=== PATIENT | female | born 1990 | race Hispanic/Latino ===

== ENCOUNTER 2018-02-11 02:14 | Emergency (ER) | payer MEDICAID ==
[2018-02-11 02:40] LABS: APPEARANCE,URINE Clear (CLEAR); BILIRUBIN,URINE Negative (NEGATIVE); COLOR,URINE Yellow (YELLOW); GLUCOSE, URINE (UA) Negative (NEGATIVE); KETONES,URINE Trace mg/dL (NEGATIVE); LEUKOCYTE ESTERASE ,URINE Negative (NEGATIVE); NITRATE,URINE Negative (NEGATIVE); OCCULT BLOOD,URINE Negative (NEGATIVE); PROTEIN,URINE Negative (NEGATIVE)
[2018-02-11 02:44] LABS: HCG,QUAL RESULT NEGATIVE (NEGATIVE)
[2018-02-11 03:17] LABS: CREATININE 1.1 mg/dL (0.5-1.5); POTASSIUM 3.7 mmol/L (3.5-5.1)
[2018-02-11 03:21] LABS: ALBUMIN 3.6 g/dL (3.5-5.0); BILIRUBIN,TOTAL 0.2 mg/dL (0.2-1.0); TOTAL PROTEIN, SERUM 7.8 g/dL (6.0-8.3)
[2018-02-11 03:29] LABS: BASOPHILS % (AUTO) 0.4 % (0.0-5.0); EOSINOPHILS % (AUTO) 2.6 % (0.0-8.0); HEMATOCRIT 40.6 % (36-48); LYMPHOCYTES % (AUTO) 40.2 % (21.0-51.0); MEAN CORPUSCULAR HEMOGLOBIN 28.5 pg (27.0-33.0); MEAN CORPUSCULAR HGB CONC 33.8 g/dL (32.0-36.0); MEAN CORPUSCULAR VOLUME 84.5 fL (79-99); MONOCYTES % (AUTO) 5.3 % (3.0-13.0); NEUTROPHILS % (AUTO) 51.5 % (40.0-77.0); PLATELET COUNT (AUTO) 286 K/uL (130-400); RED CELL DISTRIBUTION WIDTH 13.8 % (11.0-15.5); WHITE BLOOD COUNT (AUTO) 10.3 K/uL (4.8-10.8)
[2018-02-11] MEDS ORDERED: KETOROLAC TROMETHAMINE 30MG/ML ONE (04:09)
== END 2018-02-11 04:37 | disposition home or self-care (01) ==
LOC: EDH 02:14
DX: M54.5 Low back pain (principal); R11.0 Nausea; R50.9 Fever, unspecified
CPT/HCPCS: 36415; 80053; 81003; 81025; 82150; 83690; 85025; 96374; 99284; J1885

== ENCOUNTER 2024-01-31 07:19 | Emergency (ER) | payer MEDICAID, OTHER ==
[~2024-01-31] VITALS: Ht 182.9 cm; Wt 113.4 kg
[2024-01-31 07:48] VITALS: BP 150/98; PULSE 77; RESP 16; O2SAT 99
[2024-01-31] MEDS: DiphenhydrAMINE HCL 50 MG/ML VIAL IV ONE (08:18)
[2024-01-31] MEDS: METOCLOPRAMIDE 10 MG/2 ML VIAL IVP ONE (08:21)
[2024-01-31] MEDS ORDERED: IBUP-2076 PO (08:41)
[2024-01-31] MEDS ORDERED: CYCL10TA16 PO (08:41)
== END 2024-01-31 09:03 | disposition home or self-care (01) ==
LOC: EDH 07:19
DX: G43.909 Migraine, unspecified, not intractable, without status migrainosus (principal); Z98.890 Other specified postprocedural states
CPT/HCPCS: 99284; 96374; 96375; 81025; J1200; J2765